=== PATIENT | male | born 1975 | race American Indian/Alaskan Native ===

== ENCOUNTER 2016-12-02 05:16 | Inpatient (IN) | payer BC ==
[2016-12-02] MEDS ORDERED: Sodium Chloride 0.9% 1,000 ML IV STA (05:56)
--- NOTE | 2016-12-02 06:04 | ED PDOC ---
Arrival/HPI - General Chief Complaint: Headache Time Seen by Provider: 12/02/16 05:49 Historian: Patient - History of Present Illness Narrative History of Present Illness (Text): 12/02/16 06:00 Moises Clements is a 41 year old male, whose past medical history includes hypertension and diabetes who presents to the Emergency department complaining of fever for the past 2 days. Patient reports associated cough with pleuritic chest pain. Patient denies any shortness of breath, nausea, vomiting, diarrhea, urinary symptoms, back pain, neck pain, dizziness, or any other complaints. Time/Duration: < week (2 days) Symptom Onset: Gradual Symptom Course: Unchanged Activities at Onset: Rest, Light Context: Home Past Medical History - Provider Review Nursing Documentation Reviewed: Yes - Cardiac Hx Hypertension: Yes - Pulmonary Hx Respiratory Disorders: No - Neurological Hx Neurological Disorder: No - HEENT Hx HEENT Disorder: No - Renal Hx Renal Disorder: No - Endocrine/Metabolic Hx Diabetes Mellitus Type 1: Yes - Hematological/Oncological Hx Blood Disorders: No - Integumentary Hx Dermatological Disorder: No - Musculoskeletal/Rheumatological Hx Musculoskeletal Disorders: No - Gastrointestinal Hx Gastrointestinal Disorders: No - Genitourinary/Gynecological Hx Genitourinary Disorders: No - Psychiatric Hx Psychophysiologic Disorder: No Hx Substance Use: No - Surgical History Hx Orthopedic Surgery: Yes Other/Comment: Left retinal attachment - Anesthesia Hx Anesthesia: No Hx Anesthesia Reactions: No Family/Social History - Physician Review Nursing Documentation Reviewed: Yes Family/Social History: Unknown Family HX Smoking Status: Current Some Days Smoker Hx Alcohol Use: No Hx Substance Use: No Allergies/Home Meds Allergies/Adverse Reactions: Allergies No Known Allergies Allergy (Verified 12/02/16 05:50) Home Medications: Home Meds Medication Instructions Recorded Confirmed Aspirin [Ecotrin] 81 mg PO DAILY 12/02/16 12/02/16 Fenofibrate 134 mg PO DAILY 12/02/16 12/02/16 Infusion Set-Insulin Pump Body 0 unit SC CONT 12/02/16 12/02/16 [Snap Insulin Pump-Infusion Set] Nebivolol HCl [Bystolic] 2.5 mg PO DAILY 12/02/16 12/02/16 amLODIPine [Norvasc] 5 mg PO DAILY 12/02/16 12/02/16 Review of Systems - Physician Review All systems were reviewed & negative as marked: Yes - Review of Systems Constitutional: Fevers Eyes: Normal ENT: Normal Respiratory: Cough Cardiovascular: Chest Pain (+pleuritic chest pain) Gastrointestinal: Normal. absent: Abdominal Pain, Diarrhea, Nausea, Vomiting Genitourinary Male: Normal. absent: Dysuria, Frequency, Hematuria, Urinary Output Changes Musculoskeletal: Normal. absent: Back Pain, Neck Pain Skin: Normal. absent: Rash Neurological: Headache. absent: Dizziness Endocrine: Normal Hemo/Lymphatic: Normal Psychiatric: Normal Physical Exam Vital Signs Reviewed: Yes Vital Signs Temp Pulse Resp BP Pulse Ox 12/02/16 07:58 99.3 F 93 H 18 138/88 98 12/02/16 06:55 99.1 F 12/02/16 05:50 103.0 F H 107 H 17 153/89 H 95 Temperature: Febrile Blood Pressure: Normal Pulse: Regular Respiratory Rate: Normal Appearance: Positive for: Well-Appearing, Non-Toxic, Comfortable Pain Distress: None Mental Status: Positive for: Alert and Oriented X 3 - Systems Exam Head: Present: Atraumatic, Normocephalic Pupils: Present: PERRL Extroacular Muscles: Present: EOMI Conjunctiva: Present: Normal Ears: Present: Normal, NORMAL TM, Normal Canal. No: Erythema, TM Bulging, Fluid , TM Perf Mouth: Present: Moist Mucous Membranes Pharnyx: Present: Normal. No: ERYTHEMA, EXUDATE, TONSILS ENLARGED, Peritonsilar Swelling, Uvular Deviation, Muffled/Hoarse Voice, Strider, Soft Palate/Uvular Edema Neck: Present: Normal Range of Motion. No: Meningeal Signs, MIDLINE TENDERNESS , Paraspinal Tenderness Respiratory/Chest: Present: Good Air Exchange, Rhonchi (right lung). No: Respiratory Distress, Accessory Muscle Use Cardiovascular: Present: Regular Rate and Rhythm, Normal S1, S2. No: Murmurs Abdomen: Present: Normal Bowel Sounds. No: Tenderness, Distention, Peritoneal Signs Back: Present: Normal Inspection. No: CVA Tenderness, Midline Tenderness, Paraspinal Tenderness Upper Extremity: Present: Normal Inspection. No: Cyanosis, Edema Lower Extremity: Present: Normal Inspection. No: Edema Neurological: Present: GCS=15, CN II-XII Intact, Speech Normal, Motor Func Grossly Intact, Normal Sensory Function Skin: Present: Warm, Dry, Normal Color. No: Rashes Psychiatric: Present: Alert, Oriented x 3, Normal Insight, Normal Concentration Medical Decision Making ED Course and Treatment: 12/02/16 06:00 Impression: 41 year old male complaining of fever, headache, and pleuritic chest pain for 2 days. Plan: -- EKG -- Chest X-ray -- Labs, troponin, VBG, blood cultures -- Urinalysis, urine cultures -- IV fluids -- Tylenol -- Reassess and disposition Prior Visits: Notes and results from previous visits were reviewed. On 03/31/2016, pt was seen in the Emergency department for left eye pain. Pt was d/c home. Progress Notes: 12/02/16 06:11 Reviewed radiology, Chest X-ray shows right lower lung infiltrate. - Lab Interpretations Lab Results: 12/02/16 06:00 12/02/16 06:00 Lab Results 12/02/16 06:30: Uric Acid 8.1, Total Creatine Kinase 552 H, CK-MB (CK-2) 2.3, CK -MB (CK-2) % 0.4 L 12/02/16 06:00: Sodium 137, Chloride 105, Potassium 4.2, Carbon Dioxide 24, Anion Gap 12, BUN 28 H, Creatinine 2.9 H, Est GFR ( Amer) 29, Est GFR ( Non-Af Amer) 24, Random Glucose 185 H, Calcium 8.4, Total Bilirubin 0.5, AST 32 , ALT 22, Alkaline Phosphatase 119, Troponin I 0.02, Total Protein 7.0, Albumin 3.2, Globulin 3.8, Albumin/Globulin Ratio 0.8 L 12/02/16 06:00: pO2 41, VBG pH 7.40, VBG pCO2 42.0, VBG HCO3 26.0, VBG Total CO2 27.3, VBG O2 Sat (Calc) 84.1 H, VBG Base Excess 1.0, VBG Potassium 4.2, Sodium 137.0, Chloride 109.0 H, Glucose 194 H, Lactate 0.8, FiO2 21.0, Venous Blood Potassium 4.2 12/02/16 06:00: PT 10.0, INR 0.93, APTT 28.4 12/02/16 06:00: WBC 10.7, RBC 4.37, Hgb 12.4 L, Hct 35.9 L, MCV 82.2, MCH 28.4, MCHC 34.5, RDW 14.1, Plt Count 161, MPV 12.1 H, Gran % 76.8 H, Lymph % (Auto) 13.3 L, Ida % (Auto) 8.9 H, Eos % (Auto) 0.7 L, Baso % (Auto) 0.3, Gran # 8.22 H, Lymph # 1.4, Ida # 1.0 H, Eos # 0.1, Baso # 0.03 - RAD Interpretation Radiology Orders: 12/02/16 05:55 CHEST PORTABLE [RAD] Stat Hand Sander: ED Physician - Medication Orders Current Medication Orders: Amlodipine Besylate (Norvasc) 5 mg PO DAILY [facility] Arformoterol Tartrate (Brovana) 15 mcg IH [id number] [facility] Budesonide (Pulmicort Respules) 0.5 mg IH [id number] [facility] Hydralazine HCl (Apresoline) 25 mg PO Q4 PRN PRN Reason: Other Ceftriaxone Sodium (Rocephin 1 Gram Ivpb) 1 gm in 100 mls @ 100 mls/hr IVPB DAILY [facility] PRN Reason: Protocol Last Admin: 12/02/16 09:39 Dose: Azithromycin (Zithromax 500mg In Ns) 500 mg in 250 mls @ 167 mls/hr IVPB DAILY [facility] PRN Reason: Protocol Last Admin: 12/02/16 09:40 Dose: Sodium Chloride (Sodium Chloride 0.45%) 1,000 mls @ 80 mls/hr IV .[id number] [facility] Last Admin: 12/02/16 09:40 Dose: 80 mls/hr Insulin Human Regular (Humulin R High) 0 units SC ACHS [facility] PRN Reason: Protocol Last Admin: 12/02/16 12:17 Dose: 2 units Discontinued Medications Acetaminophen (Tylenol 325mg Tab) Confirm Administered Dose 975 mg .ROUTE .STK- MED ONE Stop: 12/02/16 05:50 Last Admin: 12/02/16 05:55 Dose: 975 mg Re-Assess: [facility] Pain/Vitals Document 12/02/16 06:55 SRE (Rec: 12/02/16 07:30 SRE [id number]) Pain Reassessment Is This A Pain ReAssessment? No Acetaminophen (Tylenol 325mg Tab) 975 mg PO STAT STA Stop: 12/02/16 05:57 Last Admin: 12/02/16 06:16 Dose: Sodium Chloride (Sodium Chloride 0.9%) 1,000 mls @ 999 mls/hr IV .[id number] STA Stop: 12/02/16 06:56 Last Admin: 12/02/16 06:16 Dose: 999 mls/hr Ceftriaxone Sodium (Rocephin 1 Gram Ivpb) 1 gm in 100 mls @ 200 mls/hr IV ONCE STA PRN Reason: Protocol Stop: 12/02/16 06:53 Last Admin: 12/02/16 06:37 Dose: 200 mls/hr Azithromycin (Zithromax 500mg In Ns) 500 mg in 250 mls @ 166.667 mls/hr IV STAT STA PRN Reason: Protocol Stop: 12/02/16 07:53 Last Admin: 12/02/16 07:42 Dose: 166.667 mls/hr Sodium Chloride (Sodium Chloride 0.45%) 1,000 mls @ 40 mls/hr IV .Q24H [facility] Insulin Human Regular (Humulin R Low) 0 units SC ACHS [facility] PRN Reason: Protocol Insulin Human Regular (Humulin R) Confirm Administered Dose 2 units .ROUTE .STK- MED ONE Stop: 12/02/16 07:57 Last Admin: 12/02/16 08:22 Dose: Pneumococcal Polyvalent Vaccine (Pneumovax 23 Vaccine) 0.5 ml IM .ONCE ONE Stop: 12/02/16 14:21 - Scribe Statement The provider has reviewed the documentation as recorded by the Surinder Meza Provider Scribe Attestation: All medical record entries made by the Scribshellie were at my direction and personally dictated by me. I have reviewed the chart and agree that the record accurately reflects my personal performance of the history, physical exam, medical decision making, and the department course for this patient. I have also personally directed, reviewed, and agree with the discharge instructions and disposition. Disposition/Present on Arrival - Present on Arrival Any Indicators Present on Arrival: No History of DVT/PE: No History of Uncontrolled Diabetes: No Urinary Catheter: No History of Decub. Ulcer: No History Surgical Site Infection Following: None - Disposition Have Diagnosis and Disposition been Completed?: Yes Diagnosis: Pneumonia Disposition: HOSPITALIZED Disposition Time: 06:35 Patient Plan: Admission Condition: STABLE
[2016-12-02] MEDS ORDERED: cefTRIAXone 1 gm 1 GM/100 ML BAG IV STA (06:24)
[2016-12-02] MEDS ORDERED: Azithromycin 500MG/NS 250ml 500 MG/250 ML BAG IV STA (06:24)
[2016-12-02 06:29] LABS: VENOUS BLOOD GAS PO2 41 mm/Hg (30-55)
[2016-12-02 06:40] LABS: BASO # 0.03 K/mm3 (0.0-2.0); BASO % 0.3 % (0.0-3.0); EOS # 0.1 (0.0-0.7); EOS % 0.7 % (1.5-5.0); GRAN # 8.22 (1.4-6.5); GRAN % 76.8 % (50.0-68.0); HEMOGLOBIN 12.4 gm/dL (14.0-18.0); LYMPH # 1.4 (1.2-3.4); LYMPH % 13.3 % (22.0-35.0); MEAN CELL VOLUME 82.2 fL (80.0-105.0); MEAN CORPUSCULAR HEMOGLOBIN 28.4 pg (25.0-35.0); MEAN CORPUSCULAR HGB CONC 34.5 g/dl (31.0-37.0); MEAN PLATELET VOLUME 12.1 fl (7.0-11.0); MONO % 8.9 % (1.0-6.0); PLATELET COUNT 161 10^3/uL (120.0-450.0); RBC 4.37 10^6/uL (3.5-6.1); RED CELL DISTRIBUTION WIDTH 14.1 % (11.5-14.5); WHITE BLOOD COUNT 10.7 10^3/ul (4.5-11.0)
[2016-12-02 06:46] LABS: ALB/GLOB RATIO 0.8 (1.1-1.8); ALBUMIN 3.2 g/dL (3.0-4.8); CALCIUM 8.4 mg/dL (8.4-10.5); INR 0.93 (0.93-1.08); PARTIAL THROMBOPLASTIN TIME 28.4 Seconds (23.7-30.8)
[2016-12-02 06:56] LABS: TROPONIN I 0.02 ng/mL
[2016-12-02] MEDS ORDERED: Sodium Chloride 0.45% 1,000 ML IV SCH (07:15)
[2016-12-02] MEDS ORDERED: Insulin Reg-LOW-Coverage SC SCH (07:30)
[2016-12-02] MEDS: Insulin Reg-HIGH-Coverage SC SCH ×4 (07:53→22:00)
[2016-12-02] MEDS ORDERED: Insulin Regular 1 UNITS/0.01 ML ML ONE (07:56)
--- NOTE | 2016-12-02 08:08 | RAD ---
HISTORY: Sepsis Patient COMPARISON: No prior. FINDINGS: LUNGS: There is consolidation in the right lower lobe. The left lung is clear. PLEURA: No significant pleural effusion identified, no pneumothorax apparent. CARDIOVASCULAR: Normal. OSSEOUS STRUCTURES: No significant abnormalities. VISUALIZED UPPER ABDOMEN: Normal. OTHER FINDINGS: None. IMPRESSION: Right lower lobe pneumonia. Follow-up after medical management is recommended to ensure complete resolution.
[2016-12-02] MEDS: cefTRIAXone 1 gm 1 GM/100 ML BAG IVPB SCH (09:39)
[2016-12-02] MEDS: Azithromycin 500MG/NS 250ml 500 MG/250 ML BAG IVPB SCH (09:40)
[2016-12-02] MEDS: Sodium Chloride 0.45% 1,000 ML IV SCH (09:40)
[2016-12-02] MEDS ORDERED: Fluticasone-Salmeterol 250-50mcg Diskus IH SCH (10:00)
[2016-12-02 10:27] LABS: URINE BILIRUBIN NEGATIVE (NEGATIVE); URINE BLOOD LARGE (NEGATIVE); URINE GLUCOSE (UA) 100 mg/dL (NEGATIVE); URINE LEUKOCYTE ESTERASE NEGATIVE Leu/uL (NEGATIVE); URINE NITRATE NEGATIVE (NEGATIVE); URINE PROTEIN >=300 mg/dL (<30 mg/dL); URINE UROBILINOGEN 0.2 E.U./dL (<1 E.U./dL)
[2016-12-02 10:30] LABS: URINE COLOR YELLOW (YELLOW)
[2016-12-02 10:36] LABS: URINE APPEARANCE SL CLOUDY (CLEAR); URINE BACTERIA FEW (NEG); URINE WBC 0 - 2 /hpf (0-6)
[2016-12-02 10:37] LABS: URINE COARSE GRANULAR CAST TRACE /hpf (0-2)
[2016-12-02 11:29] LABS: URIC ACID 8.1 mg/dL (3.5-8.5)
[2016-12-02 11:44] LABS: CK-MB 2.3 ng/mL (0.0-3.6)
--- NOTE | 2016-12-02 12:06 | CP.PCM.CON ---
History of Present Illness - History of Present Illness History of Present Illness: 41 year old male with with PMH of HTN, DM, obesity with BMI 31 came in to [facility] complaining of cough associated with right sided pleuritic chest pain for the past 2-3 days, associated with subjective fever and chills. He denies nausea or vomiting, no headache or dizziness, no abdominal pain, no diarrhea, no dysuria. In the ED, CXR was done which showed right lower lobe consolidation. The patient denies being on antibiotics in the past 3 months. Infectious diseases consult is requested to further evaluate and manage. Review of Systems - Review of Systems All systems: reviewed and no additional remarkable complaints except (as per HPI ) Past Patient History - Past Social History Smoking Status: Current Some Days Smoker - CARDIAC Hx Hypertension: Yes - PULMONARY Hx Respiratory Disorders: No - NEUROLOGICAL Hx Neurological Disorder: No - HEENT Hx HEENT Problems: No - RENAL Hx Chronic Kidney Disease: No - ENDOCRINE/METABOLIC Hx Diabetes Mellitus Type 1: Yes - HEMATOLOGICAL/ONCOLOGICAL Hx Blood Disorders: No - INTEGUMENTARY Hx Dermatological Problems: No - MUSCULOSKELETAL/RHEUMATOLOGICAL Hx Musculoskeletal Disorders: No - GASTROINTESTINAL Hx Gastrointestinal Disorders: No - GENITOURINARY/GYNECOLOGICAL Hx Genitourinary Disorders: No - PSYCHIATRIC Hx Psychophysiologic Disorder: No Hx Substance Use: No - SURGICAL HISTORY Hx Orthopedic Surgery: Yes Other/Comment: Left retinal attachment - ANESTHESIA Hx Anesthesia: No Hx Anesthesia Reactions: No Meds Allergies/Adverse Reactions: Allergies Allergy/AdvReac Type Severity Reaction Status Date / Time No Known Allergies Allergy Verified 12/02/16 05:50 - Medications Medications: Current Medications Ceftriaxone Sodium (Rocephin 1 Gram Ivpb) 1 gm in 100 mls @ 100 mls/hr IVPB DAILY [facility] PRN Reason: Protocol Azithromycin (Zithromax 500mg In Ns) 500 mg in 250 mls @ 167 mls/hr IVPB DAILY [facility] PRN Reason: Protocol Sodium Chloride (Sodium Chloride 0.45%) 1,000 mls @ 80 mls/hr IV .[id number] [facility] Insulin Human Regular (Humulin R High) 0 units SC ACHS [facility] PRN Reason: Protocol Last Admin: 12/02/16 07:53 Dose: 2 units Fluticasone/Salmeterol (Advair Diskus 250/50) 1 puff IH Q12 [facility] Physical Exam - Constitutional Appears: Non-toxic, No Acute Distress - Head Exam Head Exam: NORMAL INSPECTION - Neck Exam Neck exam: Negative for: Meningismus - Respiratory Exam Respiratory Exam: Decreased Breath Sounds - Cardiovascular Exam Cardiovascular Exam: +S1, +S2 - GI/Abdominal Exam GI & Abdominal Exam: Soft. absent: Tenderness Results - Vital Signs Recent Vital Signs: Last Vital Signs Temp 99.3 F 12/02/16 07:58 Pulse 93 H 12/02/16 07:58 Resp 18 12/02/16 07:58 BP 138/88 12/02/16 07:58 Pulse Ox 98 12/02/16 07:58 - Labs Result Diagrams: 12/02/16 06:00 12/02/16 06:00 Labs: Laboratory Results - last 24 hr 12/02/16 07:44 POC Glucose (mg/dL) 171 H Assessment & Plan - Assessment and Plan (Free Text) Plan: Assessment Sepsis due to right lower lobe community-acquired pneumonia HTN DM obesity with BMI 31 Plan Started patient on Rocephin and zithromax pending Blood, sputum cx, urine Legionella Ag, PCT will monitor clinical response and trend fever curve
--- NOTE | 2016-12-02 13:27 | CP.PCM.CON ---
History of Present Illness - History of Present Illness History of Present Illness: Initial Nephrology Consultation: Assessment: Stable Acute Kidney Injury (N17.9) ? hemodynamic, ATN due to sepsis. 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 Stage with ? mg proteinuria (R80.9) likely due to diabetes HTN (I12.9) Community acquired pneumonia Obesity, active smoker Plan No acute need for renal replacement therapy at this time. Hypertension control with meds as ordered. Patient not on ACEI/ARB due to SUNDAY. started on norvasc 5 mg/day and prn hydralazine. Monitor Input/Output, daily weights and renal function with basic metabolic panel Check urine analysis, spot protein/creatinine and albumin/creatinine ratio, renal sonogram. also sent CPK, uric acid. Check GN work up as C3, C4, JEANA, Anti dsDNA, ASO titers, ANCA (MPO and [place]-3), HIV/Hep B and Hep C serology (along with rheumatoid factor and serum cryoglobulin levels [to be transported at room temperature] will consider for kidney biopsy once febrile illness better unless renal function improves spontaneously. Dose meds/antibiotics for reduced GFR. Avoid fleets enema/magnesium based laxatives. Avoid nephrotoxins/NSAIDs/ iodinated contrast (unless needed emergently) Glycemic control. Smoking cessation Further work up/management as per primary team Thanks for allowing me to participate in care of your patient. Will follow patient with you. Please call if any Qs Dr Madhu Suazo Office: [phone] Chief Complaint; headache Reason for consult: elevated creatinine HPI: Pt is a 41 y/o AA M with hx of diabetes Mellitus ( x 26 years) on insulin pump, with complications including diabetic retinopathy requiring laser treatments and loss of left eye vision, hypertension, obesity BMI 31 and active smoker came with dry cough and headache for last 2 days. found to have febrile illness with pneumonia and is being treated with antibiotics. renal consult requested for elevated creatinine 2.9 mg/dL. no baseline data available. pt says he is aware about kidney disease for couple of years and was told that working at 40% and likely due to diabetes. Denies chest pain, palpitation, shortness of breath, leg swelling. has dry cough Denies blood or bubbles in urine Denies OTC/herbal meds or NSAIDs except 1 day he took alleve No recent iodinated contrast exposure. No obvious episodes of low BP. ROS: Constitutional Symptoms: Denies fever. No chills. No Recent Weight Changes Eyes: denies change in vision, denies watery eyes, denies double vision. had lost vision in left eye. Ears/Nose/Mouth/Throat: Denies Abnormal Taste. No Bad breath no Bad Taste. Cardiovascular: No chest pain. There is no shortness of breath. No palpitations. Pulmonary: No shortness of breath but had cough. Gastrointestinal: denies abdominal pain No nausea. No vomiting. Denies change in bowel habits. Denies Bleeding Genitourinary: No Change in force of strain when urinating. No increase in urinary frequency. No pain while urinating. Denies blood in urine. Neurological: had headaches. No dizziness. Denies loss of balance. Denies weakness, denies tingling/numbness Dermatological: No Rash or Bruising or ulcers. Psychiatric: Denies Anxiety. No depression. Denies hallucinations. Rheumatological: No joint pain. Denies Joint swelling Endocrine: Denies tiredness/Fatigue denies Heat/Cold Intolerance. All other negative Physical Examination: General Appearance: Comfortable, in no acute respiratory distress, co-operative . Vitals reviewed and noted as below Head; Atraumatic, normocephalic ENT: no ulcers no thrush. Tongue is midline. Oropharynx: no rash or ulcers. EYES: Patient blind in left eye. Sclera is anicteric. Neck; supple no lymphadenopathy, no thyromegaly or bruit Lungs: Normal respiratory rate/effort. Breath sounds bilateral equal and Rt basal rales + Heart: Normal rate. s1s2 normal. No rub or gallop. Extremities: trace t 1+ edema. No varicose veins Neurological: Patient is alert, awake and oriented to person, place and time. No focal deficit. Strength bilateral appropriate and equal Skin: Warm and dry. Normal turgor. No rash. Palpitation: Normal elasticity for age Abdomen: Abdomen is soft. Bowel sounds +. There is no abdominal tenderness, no guarding/rigidity no organomegaly Psych: normal insight and normal affect/mood MSK: no joint tenderness or swelling. Digits and nails normal, no deformity : kidney or bladder not palpable Labs/imaging/EKG reviewed. Past medical history, past surgical history, family history, social history, allergy reviewed and noted as below Family hx: no hx of CKD. Rest non-contributory work up: UA 3+ protein with large blood microscopy done by me showed many granular casts, RBCs and epithelial cells with few casts concerning for cellular cast with few dysmorphic RBCs Past Patient History - Past Social History Smoking Status: Current Some Days Smoker - CARDIAC Hx Hypertension: Yes - PULMONARY Hx Respiratory Disorders: No - NEUROLOGICAL Hx Neurological Disorder: No - HEENT Hx HEENT Problems: No - RENAL Hx Chronic Kidney Disease: No - ENDOCRINE/METABOLIC Hx Diabetes Mellitus Type 1: Yes - HEMATOLOGICAL/ONCOLOGICAL Hx Blood Disorders: No - INTEGUMENTARY Hx Dermatological Problems: No - MUSCULOSKELETAL/RHEUMATOLOGICAL Hx Musculoskeletal Disorders: No - GASTROINTESTINAL Hx Gastrointestinal Disorders: No - GENITOURINARY/GYNECOLOGICAL Hx Genitourinary Disorders: No - PSYCHIATRIC Hx Psychophysiologic Disorder: No Hx Substance Use: No - SURGICAL HISTORY Hx Orthopedic Surgery: Yes Other/Comment: Left retinal attachment - ANESTHESIA Hx Anesthesia: No Hx Anesthesia Reactions: No Meds Allergies/Adverse Reactions: Allergies Allergy/AdvReac Type Severity Reaction Status Date / Time No Known Allergies Allergy Verified 12/02/16 05:50 - Medications Medications: Current Medications Amlodipine Besylate (Norvasc) 5 mg PO DAILY [facility] Arformoterol Tartrate (Brovana) 15 mcg IH [id number] [facility] Budesonide (Pulmicort Respules) 0.5 mg IH [id number] [facility] Ceftriaxone Sodium (Rocephin 1 Gram Ivpb) 1 gm in 100 mls @ 100 mls/hr IVPB DAILY [facility] PRN Reason: Protocol Last Admin: 12/02/16 09:39 Dose: Not Given Azithromycin (Zithromax 500mg In Ns) 500 mg in 250 mls @ 167 mls/hr IVPB DAILY [facility] PRN Reason: Protocol Last Admin: 12/02/16 09:40 Dose: Not Given Sodium Chloride (Sodium Chloride 0.45%) 1,000 mls @ 80 mls/hr IV .[id number] [facility] Last Admin: 12/02/16 09:40 Dose: 80 mls/hr Insulin Human Regular (Humulin R High) 0 units SC ACHS [facility] PRN Reason: Protocol Last Admin: 12/02/16 12:17 Dose: 2 units Results - Vital Signs Recent Vital Signs: Last Vital Signs Temp 98.8 F 12/02/16 08:45 Pulse 87 12/02/16 08:45 Resp 18 12/02/16 08:45 BP 161/99 H 12/02/16 08:45 Pulse Ox 96 12/02/16 08:45 - Labs Result Diagrams: 12/02/16 06:00 12/02/16 06:00 Labs: Laboratory Results - last 24 hr 12/02/16 12/02/16 12/02/16 07:44 10:10 12:00 POC Glucose (mg/dL) 171 H Urine Color Yellow Urine Appearance Sl cloudy Urine pH 6.0 Ur Specific [place] 1.025 Urine Protein >=300 H Urine Glucose (UA) 100 H Urine Ketones Negative Urine Blood Large H Urine Nitrate Negative Urine Bilirubin Negative Urine Urobilinogen 0.2 Ur Leukocyte Esterase Negative Urine RBC 2 - 5 Urine WBC 0 - 2 Ur Epithelial Cells 1 - 3 Urine Bacteria Few Coarse Granular Casts Trace H Ur Random Sodium 105
[2016-12-02 14:20] VITALS: BMI 31.2
[2016-12-02] MEDS ORDERED: Pneumococcal 23-Valent Vaccine IM ONE (14:20)
--- NOTE | 2016-12-02 16:32 | US ---
PROCEDURE: Renal ultrasound 12/02/2016 HISTORY: SUNDAY COMPARISON: None available. TECHNIQUE: Renal ultrasound dated 12/02/2016. FINDINGS: RIGHT KIDNEY: Right kidney measures approximately 1.1 x 5.9 x 6.5 cm. Normal in size and contour however slight increased echogenicity ; rule out mild medical renal disease. No stone, solid mass lesion or hydronephrosis visualized. LEFT KIDNEY: Left kidney measures approximately 12.0 x 7.1 x 7.1 cm. Normal in size and contour however slight increased echogenicity ; rule out mild medical renal disease. No stone, solid mass lesion or hydronephrosis visualized. OTHER FINDINGS: None. IMPRESSION: Slight increased echotexture both kidneys suggesting mild medical renal disease. Correlation with renal function tests. No evidence of obstructing nephrolithiasis.
[2016-12-02] MEDS: Budesonide 0.5 mg/2 ml Inhal Susp UD IH SCH (19:21)
[2016-12-02] MEDS: Arformoterol 15 mcg/2 ml Inh Sol IH SCH (19:21)
[2016-12-02 21:14] LABS: COMPLEMENT C4 58.1 mg/dL (14.0-44.0)
[2016-12-02 21:19] LABS: HEPATITIS B SURFACE AG NEGATIVE (NEGATIVE)
[2016-12-02 21:24] LABS: HEPATITIS B CORE AB NEGATIVE (NEGATIVE)
[2016-12-02 21:36] LABS: HEPATITIS C ANTIBODY NEGATIVE (NEGATIVE)
--- NOTE | 2016-12-02 23:23 | CARD ---
APPROVED REPORT EKG Measurement Heart [id number] <Conclusion> Normal sinus rhythm Possible Left atrial enlargement Borderline ECG
--- NOTE | 2016-12-03 00:44 | CON ---
PULMONARY CONSULTATION HISTORY OF PRESENT ILLNESS: Moises Clements is a 41-year-old gentleman with a long-standing history of hypertension and diabetes mellitus. The patient was admitted for two-day history of cough, expectoration, and chest pain. He had some shortness of breath at that time, was admitted to the hospital for evaluation and treatment, and found to have a right lower lobe pneumonia. PAST MEDICAL HISTORY: He states that he has hypertension and diabetes mellitus. He states that the diabetes is under control. FAMILY HISTORY: No family history of inheritable disease. SOCIAL HISTORY: Currently smokes one pack of cigarettes a day and has done this for many years. No drug abuse. No travel history. No occupational exposure. ALLERGIES: No known allergies. REVIEW OF SYSTEMS: We have discussed all of the problems that he has. Aside from some renal, orthopedic surgery, and left retinal detachment, there are no other problems of note. The patient describes cough and fever, shortness of breath, chest pain. He has no other symptoms at this point in time. He has some periods of hypoglycemia for which he has the knowledge with which to deal. No additional problems are noted as of this time. All other systems negative. MEDICATIONS: His outpatient medications include an infusion pump for insulin and antihypertensives. PHYSICAL EXAMINATION: VITAL SIGNS: The patient was admitted with a temperature of a 103, pulse of 100, respiratory rate of 18, blood pressure 160/90, with a pulse ox of 95. At this point in time, his vital signs have improved. HEENT: Normocephalic, atraumatic. Pupils are PERRL. EOMs full. Conjunctivae pink. Ears normal. Mouth moist. Pharynx normal. NECK: Supple. No jugular venous distention. No lymphadenopathy. No bruits or mass. No thyromegaly. CARDIO: Regular rhythm, S1, S2, without murmur, gallop, or rub. RESPIRATORY: Good air entry. Scattered rhonchi at the right base. Scattered wheeze throughout, improved somewhat post cough. EXTREMITIES: Reveal no clubbing, cyanosis, or edema. There is no Homans sign. NEUROLOGIC: Awake and alert, oriented. Motor, sensory, and coordination normal. Babinski is downgoing. Deep tendon reflexes normal. SKIN: Warm and dry. PSYCHIATRIC: Normal. LYMPHADENOPATHY: None detected. No palpated nodes in the supraclavicular notch, nor in the cervical, inguinal, or axillary areas. LABORATORY DATA: Studies available at this time include a chest x-ray, which is consistent with a right lower lobe pneumonia and mild hyperinflation. EKG: Sinus rhythm, nonspecific ST-T wave changes. White count of 10,700, hemoglobin of 12.4, hematocrit 35.9, platelet count 161,000. Coags are normal. Blood gas was done, pH is 7.40, PCO2 was listed as 42 with a PO2 of 41, which is obviously consistent with venous gas. His laboratory studies show a BUN of 2.8, creatinine 2.9, showing azotemia, not of the prerenal-type kidney dysfunction, this needs further evaluation and treatment. Blood sugar was 185. IMPRESSION: 1. Right lower lobe pneumonia. Diabetes. 2. Chronic obstructive pulmonary disease. 3. Hypertension. 4. Asthma. 5. Tobacco abuse. 6. Diabetes. 7. Obesity PLAN: 1. At this time, the patient will need a bronchodilator and inhaled corticosteroid. We will start with Advair 250/50 since this is easy to teach and use without more vigorous therapy, which is not necessary at this time. The patient will require a complete pulmonary function study once the pneumonia has resolved. 2. The patient has no evidence of sleep apnea despite his obesity. 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 There were no other symptoms consistent with ADRIA. 3. Pneumonia. Continue antibiotics. We must repeat a chest x-ray in two to three days to make sure there is resolution of the infiltrates. We will be following with you again in the course of his hospitalization to see if further intervention is required. Rich Collins MD [facility]
--- NOTE | 2016-12-03 01:50 | HP ---
HISTORY OF PRESENT ILLNESS: I was called down to the ER by the emergency room doctor this morning to admit Moises to the hospital; I am on service today. I came down and saw him resting in bed with family present. He is in little bit of respiratory distress, he has shortness of breath for two days, progressive chest pain and some shortness of breath and time to time coughing up phlegm. He also has some fevers. PAST MEDICAL HISTORY: Hypertension and diabetes. PAST SURGICAL HISTORY: He had left retinal attachment, he had eye surgery. He also told me he had hip surgery. FAMILY HISTORY: There is hypertension and diabetes in the family. SOCIAL HISTORY: He still smokes a lot daily. No alcohol, no substance abuse. ALLERGIES: NO KNOWN DRUG ALLERGIES. MEDICATION: He is on an insulin pump. REVIEW OF SYSTEMS: He is having fevers, no changes in vision or hearing. He is having a cough, bringing up phlegm. He has got some pleuritic chest pain. No nausea, vomiting, constipation or diarrhea. No problems urinating. No back pain or leg pains. Skin is intact, no rashes. He does have a headache, but no dizziness or numbness or tingling. PHYSICAL EXAMINATION: VITAL SIGNS: He has 103 temperature, 107 pulse, 17 respiratory rate, 133/89 blood pressure and 95% O2 saturation. HEENT: Head is atraumatic and normocephalic, he is well appearing, he is a little bit toxic at this time and uncomfortable. Extraocular muscle or intact. Pupils equally reactive to light and accommodation. His throat is moist. NECK: Supple. Tympanic membranes are clear. LUNGS: He has got right lung rhonchi. HEART: Regular rate, normal S1 and S2. ABDOMEN: Soft and nontender. Positive bowel sounds. No guarding or rebound, no CVA tenderness. EXTREMITIES: No edema. NEUROLOGIC: GCS is 15. Cranial nerves II-XII grossly intact. Normal speech. Alert and oriented x3. SKIN: Warm and dry. LABORATORY DATA: On laboratory, he has 10.7 white count, 12.4 hemoglobin, 35.9 hematocrit with 161 platelet. INR is 0.93. Blood gas is 7.4 pH. He has 137 sodium, potassium 4.2, BUN is 28, creatinine is 2.9. He is in renal failure, which he never gave me any information about. Sugars 171, calcium is 8.4, total bili is 0.5, AST is 32, ALT is 22, alkaline phosphorate 119. Total troponin total protein of 7. He had a chest x-ray which showed right lower lobe pneumonia. IMPRESSION: He is currently Rocephin and Zithromax, I will put him on IV fluids. I will consult pulmonary, infectious disease and renal. We will watch him very closely. I discussed he is not allowed to smoke cigarettes anymore. Hopefully he will do very well. He is here for right lower lobe pneumonia, renal failure, he is a smoker with diabetes. Adams Quijano DO cc: MTDD
[2016-12-03] MEDS: Sodium Chloride 0.45% 1,000 ML IV SCH ×2 (02:28→17:22)
[2016-12-03] MEDS: Budesonide 0.5 mg/2 ml Inhal Susp UD IH SCH ×2 (07:22→19:55)
[2016-12-03] MEDS: Arformoterol 15 mcg/2 ml Inh Sol IH SCH ×2 (07:22→19:55)
[2016-12-03 08:07] LABS: HEMOGLOBIN 11.1 gm/dL (14.0-18.0); MEAN CELL VOLUME 81.6 fL (80.0-105.0); MEAN CORPUSCULAR HEMOGLOBIN 27.3 pg (25.0-35.0); MEAN CORPUSCULAR HGB CONC 33.4 g/dl (31.0-37.0); MEAN PLATELET VOLUME 11.2 fl (7.0-11.0); RBC 4.07 10^6/uL (3.5-6.1); RED CELL DISTRIBUTION WIDTH 14.1 % (11.5-14.5); WHITE BLOOD COUNT 9.9 10^3/ul (4.5-11.0)
[2016-12-03 08:18] LABS: ALB/GLOB RATIO 0.9 (1.1-1.8); ALBUMIN 2.9 g/dL (3.0-4.8); CALCIUM 8.3 mg/dL (8.4-10.5)
[2016-12-03] MEDS ORDERED: Fluticasone-Salmeterol 250-50mcg Diskus IH SCH (10:00)
[2016-12-03] MEDS: Insulin Reg-HIGH-Coverage SC SCH ×4 (10:08→22:20)
[2016-12-03] MEDS: Azithromycin 500MG/NS 250ml 500 MG/250 ML BAG IVPB SCH (10:08)
[2016-12-03] MEDS: cefTRIAXone 1 gm 1 GM/100 ML BAG IVPB SCH (10:08)
--- NOTE | 2016-12-03 11:45 | RAD ---
HISTORY: resolution of pneumonia? COMPARISON: 12/02/2016 TECHNIQUE: Chest PA and lateral FINDINGS: LUNGS: There is no change in the right lower lobe infiltrate PLEURA: No significant pleural effusion identified. No pneumothorax apparent. CARDIOVASCULAR: Normal. OSSEOUS STRUCTURES: No significant abnormalities. VISUALIZED UPPER ABDOMEN: Normal. OTHER FINDINGS: None. IMPRESSION: Right lower lobe pneumonia unchanged
--- NOTE | 2016-12-03 13:58 | CP.PCM.PN ---
Subjective - Date & Time of Evaluation Date of Evaluation: 12/03/16 Time of Evaluation: 13:53 - Subjective Subjective: Follow up Nephrology Consultation: Assessment: Stable Acute Kidney Injury (N17.9) ? hemodynamic, ATN due to sepsis. Concerns for glomerulonephritis Likely has Diabetic chronic Kidney Disease (E11.22) at baseline Hypertensive Chronic Kidney Disease (I12.9) Chronic Kidney Disease (N18.9) ? Stage with 5 gram proteinuria (R80.9), Nephrotic syndrome likely due to diabetes HTN (I12.9) Community acquired pneumonia Obesity, active smoker Plan No acute need for renal replacement therapy at this time. Hypertension control with meds as ordered. Patient not on ACEI/ARB due to SUNDAY:: : started on norvasc 10 mg/day and prn hydralazine. Monitor Input/Output, daily weights and renal function with basic metabolic panel GN work up pending as JEANA, Anti dsDNA, ANCA (MPO and AR-3), serum cryoglobulin levels will consider for kidney biopsy once febrile illness better unless renal function improves spontaneously. d/w patient today. he is refusing it for now, gave written education material about it. Dose meds/antibiotics for reduced GFR. Avoid fleets enema/magnesium based laxatives. Avoid nephrotoxins/NSAIDs/ iodinated contrast (unless needed emergently) Glycemic control. Smoking cessation Further work up/management as per primary team Thanks for allowing me to participate in care of your patient. Will follow patient with you. Please call if any Qs Dr Madhu Suazo Office: [phone] Subjective: Noted events overnight. Patients feels okay. Denies chest pain, palpitation, shortness of breath, leg swelling. No urinary complaints. has dry cough. Physical Examination: General Appearance: Comfortable, in no acute respiratory distress, co- operative. Vitals reviewed and noted as below Lungs: Normal respiratory rate/effort. Breath sounds bilateral equal and has Rt basal rales Heart: Normal rate. s1s2 normal. No rub or gallop. Extremities: no edema. Neurological: Patient is alert, awake and oriented to person, place and time. No focal deficit. Strength bilateral appropriate and equal Skin: Warm and dry. Normal turgor. No rash. Palpitation: Normal elasticity for age Abdomen: Abdomen is soft. Bowel sounds +. There is no abdominal tenderness, no guarding/rigidity or organomegaly : kidney or bladder not palpable Labs/imaging reviewed. Past medical history, past surgical history, family history, social history, allergy reviewed Work up: UA 3+ protein with large blood microscopy done by me showed many granular casts, RBCs and epithelial cells with few casts concerning for cellular cast with few dysmorphic RBCs Renal sono: mild increased echogenicity normal complements and HIV/Hep B and C neg. normal ASO/RA factor Objective - Vital Signs/Intake and Output Vital Signs (last 24 hours): Temp Pulse Resp BP Pulse Ox 97.8 F 92 H 20 160/88 H 99 12/03/16 07:30 12/03/16 07:30 12/03/16 07:30 12/03/16 10:07 12/03/16 07:30 Intake and Output: 12/03/16 12/03/16 06:59 18:59 Intake Total 240 Balance 240 - Medications Medications: Current Medications Acetaminophen (Tylenol 325mg Tab) 650 mg PO Q4H PRN PRN Reason: Fever >100.4 F Last Admin: 12/02/16 16:19 Dose: 650 mg Amlodipine Besylate (Norvasc) 10 mg PO DAILY [facility] Last Admin: 12/03/16 10:07 Dose: 10 mg Arformoterol Tartrate (Brovana) 15 mcg IH [id number] [facility] Budesonide (Pulmicort Respules) 0.5 mg IH [id number] [facility] Hydralazine HCl (Apresoline) 25 mg PO Q4 PRN PRN Reason: Other Last Admin: 12/03/16 06:26 Dose: 25 mg Ceftriaxone Sodium (Rocephin 1 Gram Ivpb) 1 gm in 100 mls @ 100 mls/hr IVPB DAILY [facility] PRN Reason: Protocol Last Admin: 12/03/16 10:08 Dose: 100 mls/hr Azithromycin (Zithromax 500mg In Ns) 500 mg in 250 mls @ 167 mls/hr IVPB DAILY [facility] PRN Reason: Protocol Last Admin: 12/03/16 10:08 Dose: 167 mls/hr Sodium Chloride (Sodium Chloride 0.45%) 1,000 mls @ 80 mls/hr IV .[id number] [facility] Last Admin: 12/03/16 02:28 Dose: 80 mls/hr Insulin Human Regular (Humulin R High) 0 units SC ACHS [facility] PRN Reason: Protocol Last Admin: 12/03/16 11:55 Dose: 4 units - Labs Labs: 12/03/16 07:00 12/03/16 07:00 PT 10.0 Seconds (9.9-11.8) 12/02/16 06:00 INR 0.93 (0.93-1.08) 12/02/16 06:00 APTT 28.4 Seconds (23.7-30.8) 12/02/16 06:00
--- NOTE | 2016-12-03 15:16 | PN ---
DATE: 12/03/2016 SUBJECTIVE: The patient is in bed, in no acute distress and nontoxic. PHYSICAL EXAMINATION VITAL SIGNS: Temperature is 97, blood pressure is 170/100, respiratory rate of 20, and heart rate of 92. HEENT: Examination of HEENT is unremarkable. NECK: Supple. CARDIOPULMONARY: Heart exam has normal S1 and S2. LUNGS: Decreased breath sounds. ABDOMEN: Soft and nontender. LABORATORY DATA: Examination reveals a white count is 9.9. Chemistries revealed BUN of 23, creatinine of 2.7, and procalcitonin is . Urinalysis is noted and HIV is negative. Microbiology reveals the blood cultures are negative and urine cultures are negative. Review of orders reveals the patient to be on ceftriaxone and azithromycin. The patient had a chest x-ray today which showed no change in the right lower lobe infiltrate. ASSESSMENT AND PLAN: A 41-year-old male with hypertension and diabetes and obesity who is admitted with sepsis due to right lower lobe community-acquired pneumonia, and the patient with hypertension, currently on ceftriaxone and Zithromax. The patient is afebrile this morning and the patient did have a temperature max of 102 yesterday later in the afternoon. We will continue with the present course and check on the panculture results. If the patient remains afebrile in the next 24 hours, we will consider changing to p.o. antibiotics. Sai Chavez MD
--- NOTE | 2016-12-03 16:41 | PN ---
PULMONARY PROGRESS NOTE DATE: 12/03/2016 SUBJECTIVE: The patient is markedly improved. He has no respiratory distress. He is feeling well. The cough, expectoration, and chest pain have all resolved. He is feeling considerably better than before. He remains on medication. No additional treatment is required from his pulmonary point of view. He is undergoing renal and diabetic workup at this time. This does not interfere with his respiratory status. OBJECTIVE: VITAL SIGNS: Stable with a blood pressure of 160/88, pulse 70, respiratory rate of 18, O2 sat of 98% on supplemental oxygen. HEENT: Normocephalic, atraumatic. Eyes; PERRLA. EOM is full. Conjunctivae pink. NECK: Supple. No JVD. No lymphadenopathy. No bruit, mass, or thyromegaly. CARDIOVASCULAR: Regular rhythm. S1 and S2 without murmur, gallop, or rub. CHEST: Good air entry. Rhonchi and wheezes have resolved since admission. He is markedly better and cough is no longer present. ABDOMEN: Soft. Bowel sounds are normoactive without mass, guarding, rebound, or organomegaly. There is obesity noted. EXTREMITIES: No clubbing, cyanosis, or edema. No Homans sign. NEUROLOGIC: No other changes in the neurologic picture as well as the lymphadenopathy, which remained negative. LABORATORY DATA: No new laboratory studies are available at this time. Right lower lobe pneumonia was noted on admission and a repeat x-ray will be required. CLINICAL IMPRESSION: 1. Pneumonia. 2. Diabetes. 3. Possible chronic obstructive pulmonary disease. 4. Asthma. 5. Obesity. 6. Hypertension. 7. Tobacco abuse. PLAN: The patient must be treated with the Advair as prescribed. He needs to have sleep study when he is out of the hospital. Weight loss is essential. There must be an x-ray to look at the presence of pneumonia at this time. These must be followed periodically to complete resolution on film. Further evaluation and treatment are necessary, PFT when stable. We will follow closely with you and decide on the need for further intervention based on clinical response. Rich Collins MD [facility] # [id number]
--- NOTE | 2016-12-03 17:24 | PN ---
SUBJECTIVE: I saw Moises this morning resting in bed, he slept fairly well last night. He is still coughing, had occasional shortness of breath. He is on oxygen. He is also on Apresoline, Brovana, insulin, Norvasc, Pulmicort, Rocephin IV, IV fluids, Tylenol, and Zithromax. PHYSICAL EXAMINATION: VITAL SIGNS: 97.8 Temperature, 92 pulse, 172/100 blood pressure, efe high blood pressure. I will consult Cardiology and add more blood pressure medications to him. He was yesterday, 20 respiratory rate, and 99% O2 saturation on room air. HEENT: Head is atraumatic and normocephalic. Throat is moist. NECK: Supple. HEART: Regular rate. LUNGS: Decrease breath sounds bilaterally, right worse than left with rhonchi and wheeze. ABDOMEN: Soft and nontender. Positive bowel sounds. EXTREMITIES: No edema. LABORATORY DATA: He has white count 9.9, hemoglobin 11.1, hematocrit 33.2, with platelets 144. Sodium 137, potassium 4.4, BUN 23, creatinine 2.7, a little better than yesterday. GFR is 23, blood sugar is 163, calcium is 8.3, total bilirubin 0.4, AST is 18, ALT is 25, alk phos 109. Total protein 6.1. Procalcitonin is 0.27. He had a rheumatoid factor of 18. He is being seen by Pulmonary, Infectious Disease, and Renal. He has right lower lobe pneumonia, diabetes, obesity, hypertension, asthma treated with IV antibiotics. He also had a renal ultrasound, slight increased echogenic both kidneys, mild kidney disease, no evidence of obstructive nephrolithiasis. Infectious Disease states, sepsis due to right lower lobe community-acquired pneumonia, hypertension, and diabetes. I will watch very closely, check labs tomorrow and add blood pressure medications to him. Increase his Norvasc to 10 mg, to see him. Adams Quijano DO [facility]
--- NOTE | 2016-12-04 03:49 | CON ---
CARDIOLOGY CONSULTATION DATE: HISTORY OF PRESENT ILLNESS: The patient is 41-year-old male, who presents with pneumonia. The patient's past medical history includes hypertension, which is not well controlled, diabetes mellitus as well as chronic renal failure, likely due to diabetes or hypertension. The patient denies active smoking. There is no cardiac history in his past. He denies chest pain, denies shortness of breath. SOCIAL HISTORY: The patient works for [employer]. REVIEW OF SYSTEMS: A 14-point review of systems was reviewed in detail. No cardiac symptomatology noted. PHYSICAL EXAMINATION: VITAL SIGNS: Blood pressure is 168 systolic and heart rate is in the 70s. NECK: Negative JVD. LUNGS: Without rales. HEART: Reveals S1, S2. EXTREMITIES: Without edema. IMAGING: EKG shows nonspecific ST-T changes. LABORATORY DATA: Includes creatinine of 2.7. IMPRESSION: 1. Pneumonia. 2. Diabetes mellitus. 3. Hypertension. 4. Renal sufficiency. 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 We will add clonidine for better blood pressure control. We will consider an echocardiogram to evaluate his LV function. Dylan Pepe MD
--- NOTE | 2016-12-04 06:35 | CON ---
DATE: ROOM: #568. HISTORY OF PRESENT ILLNESS: This is a 41-year-old male with recent uncontrolled type 1 insulin-dependent diabetes presenting here with fever with productive cough and associated pleuritic chest pain and has been evaluated to an acute right lower lobe pneumonitis and is being referred now for diabetic management because of supervening hyperglycemic accelerations as noted thereof. PAST MEDICAL HISTORY: As mentioned above, history of type 1 insulin dependent diabetes for the last 22 years or more and is currently using an insulin pump which was apparently discontinued prior to this admission, history of hypertensive cardiovascular disease and dyslipidemia, history of diabetic retinopathy with laser treatment to both eyes and also recent left retinal detachment, history of diabetic polyneuropathy with lower extremity paresthesias, history of diabetic nephropathy with underlying chronic kidney disease, also history of dyslipidemia and obesity. FAMILY HISTORY: Positive for diabetes and hypertension. SOCIAL HISTORY: The patient admits to nicotine dependence and has a supportive family otherwise. REVIEW OF SYSTEMS: As mentioned above, admits to generalized body weakness with easy fatigability and tiredness and suboptimal energy level. Also admits to easy bouts of dizziness and light headedness, worse on the day of admission. No precordial chest pain, but admits to pleuritic right-sided chest pain with associated productive cough and fever and rigors. His oral intake has been variable and suboptimal with nausea, dyspepsia, and vague upper abdominal pains. Also admits to polyuria and nocturia. PHYSICAL EXAMINATION GENERAL: This is an overweight male, in no apparent distress. VITAL SIGNS: Blood pressure of 150/90, pulse of 100 beats per minute and regular, temperature of 99, respirations 20. Height is 6 feet 3 inches and weight is 260 pounds. HEENT: Head is normocephalic. Eyes are anicteric with pink conjunctivae. Funduscopy not possible at this time. Ears, nose, and throat otherwise normal. NECK: Supple. Thyroid gland is normal in size. No carotid bruits or any cervical adenopathy. CARDIOPULMONARY: Adynamic precordium. S1 and S2 is rapid and regular. LUNGS: Showed scattered rhonchi. ABDOMEN: Obese, soft with positive bowel sounds. EXTREMITIES: No peripheral edema. Pulses are +2 bilaterally. LABORATORY DATA: His chemistry shows an initial BUN of 28, sodium 137, potassium 4.2, chloride 105, CO2 of 24, glucose 185, and creatinine 2.9. His creatine kinase is 552. The CK-MB of 0.4. ASSESSMENT: This is a 41-year-old male with uncontrolled and decompensated type 1 insulin-dependent diabetes, presenting here with a right lower lobe pneumonia and expected transient hyperglycemic fluctuations with intercurrent physical stressors and increased insulin resistance thereof. Moreover, he has significant diabetic microvascular complications of retinopathy, polyneuropathy and nephropathy with underlying chronic kidney disease. PLAN OF MANAGEMENT: The patient actually did not bring in his insulin pump which could have been continued for inpatient diabetic management. We will then have to resort to give him basal and bolus insulin regimen which is more physiologic, especially in the light of type 1 diabetes. We have ordered a high-dose regular insulin coverage scale for now. We will observe his glycemic fluctuations and we will restart him on the combination of Levemir given at bedtime and Humalog given 3 times a day before meals as indicated. We will obtain a hemoglobin A1c to confirm his prior glycemic control and baseline thyroid function studies and a serum cortisol and ACTH level will be obtained to rule out for any underlying autoimmune endocrinopathy. We will obtain serial chemistries and continue because IV hydration is ordered. We will also initiate diabetic education and dietary instructions at the time of this admission. We will follow. Samantha Donato MD
[2016-12-04 07:18] LABS: HEMOGLOBIN 11.2 gm/dL (14.0-18.0); MEAN CELL VOLUME 81.5 fL (80.0-105.0); MEAN CORPUSCULAR HEMOGLOBIN 27.3 pg (25.0-35.0); MEAN CORPUSCULAR HGB CONC 33.5 g/dl (31.0-37.0); MEAN PLATELET VOLUME 11.5 fl (7.0-11.0); RBC 4.1 10^6/uL (3.5-6.1); RED CELL DISTRIBUTION WIDTH 14.2 % (11.5-14.5); WHITE BLOOD COUNT 8.8 10^3/ul (4.5-11.0)
[2016-12-04 07:35] LABS: ALB/GLOB RATIO 0.8 (1.1-1.8); ALBUMIN 2.8 g/dL (3.0-4.8); CALCIUM 8.4 mg/dL (8.4-10.5)
[2016-12-04] MEDS: Arformoterol 15 mcg/2 ml Inh Sol IH SCH ×2 (07:47→20:05)
[2016-12-04] MEDS: Budesonide 0.5 mg/2 ml Inhal Susp UD IH SCH ×2 (07:47→20:05)
[2016-12-04 07:57] LABS: T4 7.5 ug/dL (5.5-11.0)
[2016-12-04] MEDS: Insulin Reg-HIGH-Coverage SC SCH (08:29)
[2016-12-04] MEDS: cefTRIAXone 1 gm 1 GM/100 ML BAG IVPB SCH (09:38)
[2016-12-04] MEDS: Azithromycin 500MG/NS 250ml 500 MG/250 ML BAG IVPB SCH (10:10)
[2016-12-04] MEDS ORDERED: Insulin Lispro 1 UNITS/0.01 ML SC STA (11:43)
[2016-12-04] MEDS ORDERED: Home Med 1 UNIT AD SCH (11:45)
[2016-12-04 12:15] LABS: CORTISOL AM 15.1 ug/dL (4.46-22.7)
--- NOTE | 2016-12-04 12:29 | CP.PCM.PN ---
Subjective - Date & Time of Evaluation Date of Evaluation: 12/04/16 Time of Evaluation: 12:23 - Subjective Subjective: Follow up Nephrology Consultation: Assessment: Stable Acute Kidney Injury (N17.9) likely ATN due to sepsis. Concerns for glomerulonephritis now low due to negative serologies Likely has Diabetic chronic Kidney Disease (E11.22) at baseline Hypertensive Chronic Kidney Disease (I12.9) Chronic Kidney Disease (N18.9) ? Stage with 5 gram proteinuria (R80.9), Nephrotic syndrome likely due to diabetes HTN (I12.9) Community acquired pneumonia Obesity, active smoker vit D deficiency Plan No acute need for renal replacement therapy at this time. Hypertension control with meds as ordered. Patient not on ACEI/ARB due to SUNDAY: started on norvasc 10 mg/day and prn hydralazine. also on on clonidine as per cardio [place] 63992 unit x 8 doses. Monitor Input/Output, daily weights and renal function with basic metabolic panel GN work up negative. kidney biopsy adamantly refused by patient which otherwise may have been appropriate considering persisting hematuria Dose meds/antibiotics for reduced GFR. Avoid fleets enema/magnesium based laxatives. Avoid nephrotoxins/NSAIDs/ iodinated contrast (unless needed emergently) Glycemic control. Smoking cessation Further work up/management as per primary team Thanks for allowing me to participate in care of your patient. Will follow patient with you. Please call if any Qs Dr Madhu Suazo Office: [phone] Subjective: Noted events overnight. Patients feels okay. Denies chest pain, palpitation, shortness of breath, leg swelling. No urinary complaints. has dry cough. Physical Examination: General Appearance: Comfortable, in no acute respiratory distress, co- operative. Vitals reviewed and noted as below Lungs: Normal respiratory rate/effort. Breath sounds bilateral equal and has Rt basal rales improved Heart: Normal rate. s1s2 normal. No rub or gallop. Extremities: no edema. Neurological: Patient is alert, awake and oriented to person, place and time. No focal deficit. Strength bilateral appropriate and equal Skin: Warm and dry. Normal turgor. No rash. Palpitation: Normal elasticity for age Abdomen: Abdomen is soft. Bowel sounds +. There is no abdominal tenderness, no guarding/rigidity or organomegaly : kidney or bladder not palpable Labs/imaging reviewed. Past medical history, past surgical history, family history, social history, allergy reviewed Work up: UA 3+ protein with large blood microscopy done by me showed many granular casts, RBCs and epithelial cells with few casts concerning for cellular cast with few dysmorphic RBCs Renal sono: mild increased echogenicity normal complements and HIV/Hep B and C neg. normal ASO/RA factor. JEANA/DNA ab/ ANCA neg 12/04: repeat UA: moderate blood with 3+ protein. microscopy with many granular casts with muddy brown casts as well. no cellular casts seen today. mostly monomorphic but few suspicious for dysmorphic too. Objective - Vital Signs/Intake and Output Vital Signs (last 24 hours): Temp Pulse Resp BP Pulse Ox 98.4 F 92 H 22 146/86 98 12/04/16 07:30 12/04/16 09:39 12/04/16 07:30 12/04/16 09:39 12/04/16 07:30 Intake and Output: 12/04/16 12/04/16 06:59 18:59 Intake Total 1020 260 Output Total 800 Balance 1020 -540 - Medications Medications: Current Medications Acetaminophen (Tylenol 325mg Tab) 650 mg PO Q4H PRN PRN Reason: Fever >100.4 F Last Admin: 12/03/16 20:10 Dose: 650 mg Amlodipine Besylate (Norvasc) 10 mg PO DAILY [facility] Last Admin: 12/04/16 09:39 Dose: 10 mg Arformoterol Tartrate (Brovana) 15 mcg IH [id number] [facility] Last Admin: 12/04/16 07:47 Dose: 15 mcg Budesonide (Pulmicort Respules) 0.5 mg IH [id number] [facility] Last Admin: 12/04/16 07:47 Dose: 0.5 mg Clonidine HCl (Catapres) 0.1 mg PO BID [facility] Last Admin: 12/04/16 09:39 Dose: 0.1 mg Ergocalciferol (Drisdol 50,000 Intl Units Cap) 1 cap PO Q7D [facility] Stop: 01/22/17 12:31 Fenofibrate (Tricor) 145 mg PO DAILY [facility] Last Admin: 12/04/16 09:39 Dose: 145 mg Home Med (Home Med) 1 unit INJ DAILY [facility] Hydralazine HCl (Apresoline) 25 mg PO Q4 PRN PRN Reason: Other Last Admin: 12/03/16 06:26 Dose: 25 mg Ceftriaxone Sodium (Rocephin 1 Gram Ivpb) 1 gm in 100 mls @ 100 mls/hr IVPB DAILY [facility] PRN Reason: Protocol Last Admin: 12/04/16 09:38 Dose: 100 mls/hr Azithromycin (Zithromax 500mg In Ns) 500 mg in 250 mls @ 167 mls/hr IVPB DAILY [facility] PRN Reason: Protocol Last Admin: 12/04/16 10:10 Dose: 167 mls/hr Sodium Chloride (Sodium Chloride 0.45%) 1,000 mls @ 80 mls/hr IV .[id number] [facility] Last Admin: 12/03/16 17:22 Dose: 80 mls/hr - Labs Labs: 12/04/16 06:45 12/04/16 06:45 PT 10.0 Seconds (9.9-11.8) 12/02/16 06:00 INR 0.93 (0.93-1.08) 12/02/16 06:00 APTT 28.4 Seconds (23.7-30.8) 12/02/16 06:00
[2016-12-04] MEDS ORDERED: Ergocalciferol 50,000 Intl Units Cap PO SCH (12:30)
--- NOTE | 2016-12-04 13:02 | PN ---
SUBJECTIVE: He slept well. He is comfortable in bed. We had a long talk about quitting smoking. He understands that he is breathing little bit and is coughing up phlegm, but less issues with breathing. No chest pain, no shortness of breath, and no abdominal pain. He is being seen by endocrinology, cardiology, renal and infectious disease. He has had multiple issues when he came to the hospital. PHYSICAL EXAMINATION: VITAL SIGNS: He is still having a 101.3 temp, 101 pulse, 142/86 blood pressure and 100% O2 saturation on room air. HEENT: His head is atraumatic and normocephalic. Throat is moist. NECK: Supple. CARDIOPULMONARY: Heart is regular rate. LUNGS: Right upper quadrant with wheezes, rhonchi, congestion and changes with cough. He is bringing out phlegm. ABDOMEN: Soft. EXTREMITIES: No edema. MEDICATIONS: He is currently on Apresoline, Brovana, Catapres, insulin, Norvasc, Pulmicort, Rocephin IV, IV fluids, Tylenol and Zithromax. LABORATORY DATA: His white count is 8.8, hemoglobin 11.2, hematocrit 33.4, platelets of 163. He has a 136 sodium, potassium of 4.2, BUN is 24, creatinine 2.3 and bit better than when he came in. His blood sugar was 227; calcium was 8.4, total bili is 0.5, AST is 19, ALT is 27, alkaline phosphatase 116, albumin is 2.8, triglycerides are 560. We will put him on medicine for his triglycerides. Cholesterol is 200. TSH is 2. He was spilling sugar in his urine, also had blood in his urine. Microalbumin is greater than 950. Negative hepatitis. treatment and care. He has multiple issues still with temperatures, which concerns me We will check his labs tomorrow, IV fluids. I will add some Tricor for his elevated triglycerides. Continue with aggressive treatment and care for his pneumonia, renal insufficiency, hypertension, diabetes and is a smoker. Adams Quijano DO cc: IDANIA
--- NOTE | 2016-12-04 20:12 | PN ---
ENDO FOLLOWUP NOTE LOCATION: Room 568. SUBJECTIVE: This is a 41-year-old male with recent uncontrolled type 2 insulin requiring diabetes, presenting here with marked hyperglycemic exacerbations and is now being followed closely for metabolic management. His glycemic levels today have markedly elevated as he is actually off his insulin pump as noted. The latest glucose levels have ranged from 237 to 428 mg/dL. His A1c is 12.2% despite the use of an insulin pump at home and this is quite surprising considering the fact that the patient on the insulin pump of very optimal metabolic control as noted. The A1c levels are usually below 7% and if his A1c is 12.2% then he clearly is out of control with possibly no adjustments of his basal and bolus insulin dose regimen on the use of his insulin pump. His latest chemistries with a BUN of 24, sodium 136, potassium 4.2, chloride 106, CO2 of 24, glucose 247 and creatinine 2.3. So at this time, we will give him a stat dose of Humalog, given 20 units subQ stat at lunch time today and then he was advised to restart his insulin pump and be allowed to self adjust his own basal and bolus insulin dose regimen as ordered. He will clearly need closer follow up with his medical doctor and/or bakery associate *------* for tighter metabolic control and tighter metabolic goals to be achieved accordingly. ASSESSMENT: This is a 41-year-old male with uncontrolled and decompensated type 1 insulin-dependent diabetes, presenting here with marked hyperglycemic exacerbations and suboptimal metabolic control as mentioned. *------* diabetic microvascular complications of retinopathy, polyneuropathy and nephropathy with the fear for possible eventual chronic kidney failure on hemodialysis, if not adhere to very closely as noted. We will consult diabetes nurse educator Ms. Pita Clements also regarding the aforementioned. We will follow. Samantha Donato MD
--- NOTE | 2016-12-04 20:22 | PN ---
DATE: 12/04/2016 SUBJECTIVE: The patient is comfortable in bed. PHYSICAL EXAMINATION: VITAL SIGNS: Blood pressure is 146/86, heart rate is in the 90s. NECK: Negative JVD. LUNGS: Without rales. HEART: Regular S1 and S2. EXTREMITIES: Without edema. LABORATORY DATA: Hemoglobin is 11.2. Chemistry; his glucose is 237 with a BUN and creatinine of 24 and 2.3. IMPRESSION: 1. Sepsis. 2. Accelerated hypertension which is better. 3. Diabetes mellitus. 4. Renal insufficiency. Given these findings, the clonidine is controlling his blood pressure more effectively. I have discussed with the patient about the need to stop smoking. I have discussed possible anti-smoking programs with him. Dylan Pepe MD
--- NOTE | 2016-12-05 01:51 | PN ---
DATE: 12/04/2016 SUBJECTIVE: The patient is seen earlier this morning in no acute distress, nontoxic, no fevers and chills. PHYSICAL EXAMINATION VITAL SIGNS: Temperature is 98, blood pressure is 140/87. T-max earlier this morning was 100.5. HEENT: Unremarkable. NECK: Supple. LUNGS: Decreased breath sounds. HEART: Normal S1, S2. ABDOMEN: Soft. LABORATORY DATA: Reveals a white count of 8.8, hemoglobin of 11, platelets of 163, and creatinine is 2.3. Urinalysis is noted. Microbiology reveals the blood cultures with no growth. Urine cultures with no growth. Patient had a chest x-ray yesterday which showed no change in the right lower lobe infiltrate. Review of orders. Sputum culture are pending. Patient is on ceftriaxone and azithromycin. Hepatitis profile is negative and urine for Legionella antigen is negative. ASSESSMENT AND PLAN: A 41-year-old male with hypertension, diabetes, obesity, sepsis with a right lower lobe community-acquired pneumonia on ceftriaxone, Zithromax. We will order a CAT scan of the chest. Dr. Dylan Pepe's note is reviewed. I also reviewed Dr. Adams Quijano's note and I also ordered an ANCA and Goodpasture's workup his renal kidney and lung and we will follow with you. Sai Chavez MD
[2016-12-05] MEDS: Arformoterol 15 mcg/2 ml Inh Sol IH SCH (07:15)
[2016-12-05] MEDS: Budesonide 0.5 mg/2 ml Inhal Susp UD IH SCH (07:15)
[2016-12-05 09:00] VITALS: RESP 20; TEMP 98.5; O2SAT 97
--- NOTE | 2016-12-05 09:08 | CT ---
PROCEDURE: CT Chest without contrast HISTORY: fever COMPARISON: Chest radiograph dated 12/03/2016. TECHNIQUE: Contiguous axial images were obtained through the chest without intravenous contrast enhancement. Sagittal and coronal reconstructions were performed. Radiation dose (DLP): 794 mGy-cm. This CT exam was performed using one or more of the following dose reduction techniques: Automated exposure control, adjustment of the mA and/or kV according to patient size, and/or use of iterative reconstruction technique. FINDINGS: LUNGS: A dense infiltrate it is masslike in the right lower lobe the surrounding gland ground-glass opacity and likely atelectasis. Follow-up chest is advised following therapy to demonstrate resolution of this finding is underlying lesion is not completely excluded. Really feels select on limited dependent atelectasis the left lower lobe. Central airways appear clear. There is no definite pulmonary mass within well-aerated lung. MEDIASTINUM: Unremarkable thoracic aorta. No aneurysm. Normal sized heart. Main pulmonary artery unremarkable. No vascular congestion. Mild mediastinal lymphadenopathy is identified including a preaortic lymph node measuring 2.5 x 1.0 cm. PLEURA: There is a very mild anterior pericardial effusion. Mild right pleural effusion. No pneumothorax. BONES: No fracture. No destructive lesion. UPPER ABDOMEN: Bilateral mild streaky perinephric change are appreciated which are nonspecific. No obvious obstructive uropathy bilaterally. OTHER FINDINGS: None. IMPRESSION: 1. Very dense infiltrates identified in the right lower lobe which is in fact masslike. Mild right pleural effusion. Following therapy, repeat testes advised to demonstrate resolution of this finding specifically. 2. Mild pericardial effusion. Cardiac size appears normal. 3. Mild mediastinal lymphadenopathy. 4. A left thyroid lobe nodule is suggested. Consider follow-up thyroid ultrasound exam.
[2016-12-05] MEDS: cefTRIAXone 1 gm 1 GM/100 ML BAG IVPB SCH (09:55)
[2016-12-05 09:56] VITALS: BP 109/72; PULSE 79
[2016-12-05] MEDS ORDERED: INSULIN PUMP INJ SCH (10:00)
[2016-12-05 10:29] LABS: ALB/GLOB RATIO 0.8 (1.1-1.8); ALBUMIN 2.8 g/dL (3.0-4.8); CALCIUM 8.2 mg/dL (8.4-10.5)
[2016-12-05] MEDS: Azithromycin 500MG/NS 250ml 500 MG/250 ML BAG IVPB SCH (11:26)
--- NOTE | 2016-12-05 13:15 | CP.PCM.PN ---
Subjective - Date & Time of Evaluation Date of Evaluation: 12/05/16 Time of Evaluation: 13:13 - Subjective Subjective: Follow up Nephrology Consultation: Assessment: Stable Non-oliguric Acute Kidney Injury (N17.9) likely acute tubular necrosis due to sepsis. Concerns for glomerulonephritis now low due to negative serologies Likely has Diabetic chronic Kidney Disease (E11.22) at baseline Hypertensive Chronic Kidney Disease (I12.9) Chronic Kidney Disease (N18.9) ? Stage with 5 gram proteinuria (R80.9), Nephrotic syndrome likely due to diabetes HTN (I12.9) Community acquired pneumonia Obesity, active smoker vit D deficiency with secondary hyperparathyroidism Plan No acute need for renal replacement therapy at this time. Hypertension control with meds as ordered. Patient not on ACEI/ARB due to SUNDAY but will be indicated once SUNDAY better: started on norvasc 10 mg/day and prn hydralazine. also on on clonidine as per cardio [place] 83634 unit x 8 doses. Monitor Input/Output, daily weights and renal function with basic metabolic panel GN work up negative so far. kidney biopsy adamantly refused by patient which otherwise may have been appropriate considering persisting hematuria Dose meds/antibiotics for reduced GFR. Avoid fleets enema/magnesium based laxatives. Avoid nephrotoxins/NSAIDs/ iodinated contrast (unless needed emergently) Glycemic control. Smoking cessation Further work up/management as per primary team Thanks for allowing me to participate in care of your patient. Will follow patient with you. Please call if any Qs Dr Madhu Suazo Office: [phone] Subjective: Noted events overnight. Patients feels okay. Denies chest pain, palpitation, shortness of breath, leg swelling. No urinary complaints. Physical Examination: General Appearance: Comfortable, in no acute respiratory distress, co- operative. Vitals reviewed and noted as below Lungs: Normal respiratory rate/effort. Breath sounds bilateral equal and has Rt basal rales Heart: Normal rate. s1s2 normal. No rub or gallop. Extremities: no edema. Neurological: Patient is alert, awake and oriented to person, place and time. No focal deficit. Strength bilateral appropriate and equal Skin: Warm and dry. Normal turgor. No rash. Palpitation: Normal elasticity for age Abdomen: Abdomen is soft. Bowel sounds +. There is no abdominal tenderness, no guarding/rigidity or organomegaly : kidney or bladder not palpable Labs/imaging reviewed. Past medical history, past surgical history, family history, social history, allergy reviewed Work up: UA 3+ protein with large blood microscopy done by me initially showed many granular casts, RBCs and epithelial cells with few casts concerning for cellular cast with few dysmorphic RBCs Renal sono: mild increased echogenicity normal complements and HIV/Hep B and C neg. normal ASO/RA factor. JEANA/DNA ab/ ANCA neg 12/04: repeat UA: moderate blood with 3+ protein. microscopy with many granular casts with muddy brown casts as well. no cellular casts seen today. mostly monomorphic but few suspicious for dysmorphic too. Objective - Vital Signs/Intake and Output Vital Signs (last 24 hours): Temp Pulse Resp BP Pulse Ox 98.5 F 79 20 109/72 97 12/05/16 07:30 12/05/16 09:54 12/05/16 07:30 12/05/16 09:54 12/05/16 07:30 Intake and Output: 12/05/16 12/05/16 06:59 18:59 Intake Total 2306 780 Output Total 300 800 Balance 2005 - Medications Medications: Current Medications Acetaminophen (Tylenol 325mg Tab) 650 mg PO Q4H PRN PRN Reason: Fever >100.4 F Last Admin: 12/04/16 16:59 Dose: 650 mg Amlodipine Besylate (Norvasc) 10 mg PO DAILY [facility] Last Admin: 12/05/16 09:54 Dose: 10 mg Arformoterol Tartrate (Brovana) 15 mcg IH [id number] [facility] Last Admin: 12/05/16 07:15 Dose: 15 mcg Budesonide (Pulmicort Respules) 0.5 mg IH [id number] [facility] Last Admin: 12/05/16 07:15 Dose: 0.5 mg Clonidine HCl (Catapres) 0.1 mg PO BID [facility] Ergocalciferol (Drisdol 50,000 Intl Units Cap) 1 cap PO Q7D [facility] Stop: 01/22/17 12:31 Last Admin: 12/04/16 12:53 Dose: 1 cap Fenofibrate (Tricor) 145 mg PO DAILY [facility] Last Admin: 12/05/16 09:53 Dose: 145 mg Home Med (Home Med) 1 unit INJ DAILY [facility] Ceftriaxone Sodium (Rocephin 1 Gram Ivpb) 1 gm in 100 mls @ 100 mls/hr IVPB DAILY [facility] PRN Reason: Protocol Last Admin: 12/05/16 09:55 Dose: 100 mls/hr Azithromycin (Zithromax 500mg In Ns) 500 mg in 250 mls @ 167 mls/hr IVPB DAILY [facility] PRN Reason: Protocol Last Admin: 12/05/16 11:26 Dose: 167 mls/hr Sodium Chloride (Sodium Chloride 0.45%) 1,000 mls @ 80 mls/hr IV .[id number] [facility] Last Admin: 12/03/16 17:22 Dose: 80 mls/hr - Labs Labs: 12/04/16 06:45 12/05/16 10:20 PT 10.0 Seconds (9.9-11.8) 12/02/16 06:00 INR 0.93 (0.93-1.08) 12/02/16 06:00 APTT 28.4 Seconds (23.7-30.8) 12/02/16 06:00
--- NOTE | 2016-12-05 13:15 | PN ---
PULMONARY PROGRESS NOTE DATE: 12/05/2016 SUBJECTIVE: The patient was seen and examined, sitting up in chair. Patient states that he feels much better. He is receiving azithromycin and ceftriaxone as antibiotics and he is on budesonide and Brovana by inhalations. PHYSICAL EXAMINATION VITAL SIGNS: His temperature is 98.5, pulse 79, respirations 20, pulse oximetry is 97% on room air. HEAD, EYES, EARS, NOSE, AND THROAT: Within normal limits. NECK: Supple with no jugular vein distention. CHEST: Symmetrical. HEART: S1 and S2. No S3. Regular. LUNGS: Markedly diminished breath sounds at both lung bases with some dullness at both lung bases for percussion. GASTROINTESTINAL: Soft and nontender. No organomegaly. EXTREMITIES: Within normal limits. SKIN: Dry; intact ASSESSMENT AND PLAN: Patient was admitted with diagnosis of fevers and pneumonia, responding well to antibiotics. We anticipate that if the pneumonia is resolving on the chest x-ray, patient will be discharged soon. Moises Hunter MD IDANIA
--- NOTE | 2016-12-05 13:22 | PN ---
DATE: 12/05/2016 SUBJECTIVE: I saw him resting comfortably in bed. He is improving, he tells me. Less cough, less shortness of breath. He is on IV antibiotics. He has got couple of issues though. First of all, he is eating well. He is walking around better. Better strength. PHYSICAL EXAMINATION VITAL SIGNS: He is at 98.5 temperature, 82 pulse, 109/72 blood pressure, 20 respiratory rate, and 97% O2 sat on room air. HEENT: His head is atraumatic and normocephalic. HEART: Regular rate. LUNGS: Decreased breath sounds, especially the right side. Clear to auscultation otherwise. ABDOMEN: Soft. EXTREMITIES: No edema. MEDICATIONS: He is currently on Drisdol, Apresoline, Brovana, Catapres, Norvasc, Pulmicort, Rocephin, IV fluids, Tricor, Tylenol, Zithromax. LABORATORY DATA: He has a 213 blood sugar, just found it on the insulin pump this morning, the labs are not back. He does have a chest CAT scan that showed interestingly a very dense infiltrate identified on the right lower lobe, which is in fact mass like. ASSESSMENT AND PLAN: Mild right pleural effusion following therapy. Repeat tests. Mild pericardial effusion, mild metastatic lymphadenopathy, left sided thyroid nodule is suggested. We will do a thyroid ultrasound and also I would like to get a Dr. Dylan Cotto consult for biopsy of the lungs hopefully tomorrow. The patient had a mass-like projection in the lungs, pneumonia and a thyroid nodule. Adams Quijano DO
--- NOTE | 2016-12-05 14:09 | PN ---
CARDIOLOGY FOLLOWUP DATE: 12/05/2016 PHYSICAL EXAMINATION VITAL SIGNS: Blood pressure has gone from 177 to 109, pulse is in the 80s. NECK: Negative JVD. LUNGS: Without rales. HEART: Regular S1 and S2.. EXTREMITIES: Without edema. LABORATORY DATA: Hemoglobin is 11.2. Chemistry; BUN and creatinine is 29 and 2.6 with a glucose of 163. CT scan of the chest reveals infiltrates in the right lower lobe. IMPRESSION: 1. Pneumonia. 2. Accelerated hypertension, which is better on clonidine. 3. Diabetes mellitus. 4. Renal insufficiency. Given these findings, we will give parameters for the clonidine dose to maintain adequate blood pressure. The patient is currently on IV antibiotics. Dylan Pepe MD
--- NOTE | 2016-12-05 14:11 | US ---
HISTORY: nodule TECHNIQUE: Sonographic evaluation of the thyroid gland. COMPARISON: FINDINGS: RIGHT LOBE: Measures 5.9 x 2.0 x 2.3 cm. There are least 4 subcentimeter complex cystic foci seen in the right thyroid lobe. The dominant right-sided lesion is isoechoic with inhomogeneous internal echotexture and a slight peripheral halo measure 1.2 x 1.0 cm at the mid to lower pole region. Nodules: As discussed immediately above. LEFT LOBE: Measures 5.8 x 1.8 x 2.3 cm. The dominant left lobe lesion is identified at the lower pole measuring 2.6 x 1.9 cm also isoechoic in internal echotexture though somewhat inhomogeneous. A peripheral hypoechoic halo was appears rather structure and is borderline hyperemic. Tissue diagnosis of this lesion is advised. A smaller similar lesion seen immediately cephalad to it at the midpole measuring 0.9 x 0.8 cm with a 30 even smaller solid nodule identified upper pole measures 0.8 x 0.5 cm. A solitary subcentimeter complex cyst upper pole left lobe. Nodules: As discussed immediately above ISTHMUS: Measures 0.6 mm. Nodules: None OTHER FINDINGS: None . IMPRESSION: Mild thyromegaly including the isthmus. Dominant left lobe nodule is identified lower pole left lobe measuring 2.7 cm with a mid to lower pole right lobe dominant nodule measuring 1.2 cm greatest dimension, similar in appearance. Consider tissue diagnosis for both these dominant foci particularly the largest lesion at the lower pole left lobe. Multiple small complex cysts are identified bilaterally
--- NOTE | 2016-12-05 18:50 | PN ---
ENDO FOLLOWUP NOTE DATE: 12/05/2016 Room 568. SUBJECTIVE: This is a 41-year-old male with recent uncontrolled type 1 insulin dependent diabetes, which supervening marked hyperglycemic accelerations, because of these of the transient omission of his insulin infusion as this was held off by the nursing staff in the emergency room as noted. At this time, we have restarted the use of his insulin pump from yesterday afternoon and his glycemic fluctuations have improved accordingly. He is using [employer] insulin pump, which is actually a much older version and model compared to what is available at this time. LABORATORY DATA: His glucose values have improved and today's levels have raised from 78 to 213 and 278 mg/dL. His latest chemistry showed the BUN of 29, sodium 138, potassium 3.9, chloride 107, CO2 of 25, glucose 163, and creatinine 2.6. His A1c was actually reported as 12.2%, which is quite elevated and indicative of suboptimal metabolic control of his diabetic condition even prior to this admission on this current insulin pump infusion as noted. ASSESSMENT: This is a 41-year-old male with uncontrolled and decompensated type 1 insulin dependent diabetes, presenting here with an acute pneumonitis, and under going IV antibiotic management and is also being follow closely for metabolic management. He also has diabetic microvascular complication of retinopathy, polyneuropathy and nephropathy with chronic kidney disease, and progressive renal insufficiency. He also has diabetic microvascular complications of coronary artery disease, and peripheral arterial disease and vasculopathy. PLAN OF MANAGEMENT: I have discussed with the patient lengthily at bedside, *------* metabolic control cannot pass the over emphasized and the imperative need also to achieve tighter metabolic goals, with an A1c of less than 7% if at all possible, especially with using an insulin pump as noted and discussed lengthily. We will call the [employer] pump specialist Ms. Hien Harmon to facilitate and expedite a upgrade of his current insulin pump as given. We will advise the patient to increase his basal and bolus insulin dose adjustments in his current insulin pump to optimize metabolic control. He will follow with Dr. Mai, a local boat carpenter mechanic in [place] for outpatient diabetic and insulin management ,so he was seen by *------* our diabetic nurse educator yesterday and she reinforce diabetic education and the imperative need for insulin dose adjustments accordingly. We will obtain serum chemistry and supplement accordingly as needed. We will follow. Samantha Donato MD
--- NOTE | 2016-12-05 23:07 | PN ---
DATE: 12/05/2016 SUBJECTIVE: The patient is in bed in no acute distress, nontoxic, was seen earlier this morning. The patient was seen in 568. He states that he has had some weight loss and overall has been weak. He has had fever and cough. PHYSICAL EXAMINATION VITAL SIGNS: Temperature is 98 with a T-max of *------* blood pressure is 170/90 and respiratory rate of 16. HEENT: Unremarkable. NECK: Supple. HEART: Regular S1 and S2. LUNGS: Decreased breath sounds. ABDOMEN: Soft and nontender. LABORATORY DATA: Reveals the patient to have a white count of 8.8 with a hemoglobin of 11 and platelets of 163. BUN of 29 and creatinine of 2.6. Microbiology reveals the patient's blood cultures and urine cultures are negative. The patient did have a CAT scan of the chest and was *------*. Very dense infiltrate identified in the right lower lobe which is in fact mass like with mild mediastinal lymphadenopathy and thyroid nodule. Dr. Richardson's note is reviewed. Dr. Adams Quijano's note is reviewed. ASSESSMENT AND PLAN: This is a 41-year-old male with hypertension, diabetes, obesity with sepsis with a right lower lobe community-acquired pneumonia now with a mass like infiltrate and prolonged fevers on Zithromax and ceftriaxone, slowly improving. If radiological treatment does not resolve, will need a biopsy and also will need an endocrine for thyroid nodule workup. Case discussed with Dr. Adams Quijano and I am concerned about an underlying malignancy with this patient. Also the ANCA and rheumatologic workup is pending. The patient's human immunodeficiency virus is negative and we will follow closely with you. Dr. Adams Quijano had stated that he will call Dr. Dylan Cotto to re-evaluate him if that chest PET scan finding mass that needs a biopsy. Awaiting for his input. Sai Chavez MD
[2016-12-09 04:24] LABS: ANCA SCREEN NEGATIVE (NEGATIVE)
== END 2016-12-05 15:59 | disposition left against medical advice (07) | DRG 871 ==
LOC: ED 05:16 → ERH 06:36 → 5RNO 08:33
PROVIDERS: ADMIT Family Medicine; ATTEND Family Medicine
DX: A41.9 Sepsis, unspecified organism (principal); J18.9 Pneumonia, unspecified organism; N17.0 Acute kidney failure with tubular necrosis; I13.10 Hypertensive heart and chronic kidney disease without heart failure, with stage 1 through stage 4 chronic kidney disease, or unspecified chronic kidney disease; J90 Pleural effusion, not elsewhere classified; E10.21 Type 1 diabetes mellitus with diabetic nephropathy; N25.81 Secondary hyperparathyroidism of renal origin; N18.9 Chronic kidney disease, unspecified; E66.9 Obesity, unspecified; F17.210 Nicotine dependence, cigarettes, uncomplicated; J44.9 Chronic obstructive pulmonary disease, unspecified; J45.909 Unspecified asthma, uncomplicated; R59.1 Generalized enlarged lymph nodes; E04.1 Nontoxic single thyroid nodule; E55.9 Vitamin D deficiency, unspecified; E10.65 Type 1 diabetes mellitus with hyperglycemia; E10.319 Type 1 diabetes mellitus with unspecified diabetic retinopathy without macular edema; E10.42 Type 1 diabetes mellitus with diabetic polyneuropathy; E10.22 Type 1 diabetes mellitus with diabetic chronic kidney disease; E10.51 Type 1 diabetes mellitus with diabetic peripheral angiopathy without gangrene; Z79.4 Long term (current) use of insulin; Z82.49 Family history of ischemic heart disease and other diseases of the circulatory system; Z83.3 Family history of diabetes mellitus; Z68.30 Body mass index [BMI] 30.0-30.9, adult